=== PATIENT | male | born 1990 | race Caucasian/White ===

== ENCOUNTER 2017-01-02 03:50 | Emergency (ER) | payer SELFPAY ==
[~2017-01-02] VITALS: Ht 180.3 cm; Wt 102.0 kg
[2017-01-02] MEDS ORDERED: LIDOCAINE 1%, 20ML ONE (04:20)
[2017-01-02] MEDS ORDERED: DIPH,PERTUSS(ACELL),TET VAC/PF 0.5 ML IM-VACC ONE ×2 (04:51→05:30)
[2017-01-02 05:31] VITALS: BP 119/71
[2017-01-02] MEDS ORDERED: BACITRACIN ZINC OINT 500U/GM, 0.9 GM ONE (06:07)
== END 2017-01-02 06:24 | disposition home or self-care (01) ==
LOC: ED 06:05
DX: S01.511A Laceration without foreign body of lip, initial encounter (principal); S09.90XA Unspecified injury of head, initial encounter; X58.XXXA Exposure to other specified factors, initial encounter; Y93.89 Activity, other specified; Y92.89 Other specified places as the place of occurrence of the external cause; Y99.9 Unspecified external cause status
CPT/HCPCS: 13151